=== PATIENT | female | born 1985 | race African-American/Black ===

== ENCOUNTER 2017-03-14 05:12 | Inpatient (IN) | payer MEDICAID ==
[2017-03-14] VITALS (7 sets, daily range): BP systolic 98–119; BP diastolic 49–68; PULSE 68–83; RESP 16–18; TEMP 97.6–98.3; O2SAT 97–99
[~2017-03-14] VITALS: Ht 162.6 cm; Wt 104.0 kg
[2017-03-14] MEDS ORDERED: LR 1,000 ML IV PRN (05:25)
[2017-03-14] MEDS ORDERED: FAMOTIDINE 20mg IVPB 50 ML IV ONE (05:30)
[2017-03-14] MEDS ORDERED: CEFAZOLIN 2 GM in D5W 50ml 50 ML IV ONE (05:30)
[2017-03-14] MEDS ORDERED: LIDOCAINE 1% (10mg/ml) 2ml SDV ID PRN (05:30)
[2017-03-14] MEDS ORDERED: CITRIC ACID/SODIUM CITRATE 30 ML PO ONE (05:30)
[2017-03-14 05:56] LABS: BASOPHILS % (AUTO) 0.2 % (0-2); EOSINOPHILS # (AUTO) 0.1 T/MM3 (0-0.5); EOSINOPHILS % (AUTO) 0.9 % (0-4); HCT - HEMATOCRIT 29.6 % (36-46); HGB - HEMOGLOBIN 9.5 GM/DL (12-16); IMMATURE GRANULOCYTE # (AUTO) 0.01 T/MM3 (0.00-0.03); IMMATURE GRANULOCYTE % (AUTO) 0.2 % (0.0-0.5); LYMPHOCYTES # (AUTO) 1.7 T/MM3 (1-4.8); LYMPHOCYTES % (AUTO) 32.8 % (23-45); MEAN CORPUSCULAR HGB 26.4 UUG (26-34); MEAN CORPUSCULAR HGB CONC(MCHC 32.1 GM/DL (31-37); MEAN CORPUSCULAR VOLUME 82.2 UM3 (80-100); MONOCYTES # (AUTO) 0.2 T/MM3 (0-0.8); MONOCYTES % (AUTO) 3.8 % (0-9.0); NEUTROPHILS #(AUTO)-ABSOLUTE 3.3 T/MM3 (1.8-7.7); NEUTROPHILS % (AUTO) 62.1 % (33-66); WBC - WHITE BLOOD COUNT 5.3 T/MM3 (4.5-11.0)
--- NOTE | 2017-03-14 06:50 | ANESPREOP ---
Anesthesia Record Date and Time DATE: 03/14/17 TIME: 06:48 Pre-Op Diagnosis previous csection Proposed Surgical Procedure REPEAT NPO since: mn Allergies: Coded Allergies: No Known Allergies (Unverified , 11/15/16) Ht/Wt/BMI Height: 5 ' 4.00 " Weight: 104.000 kg BMI: kg/m2 Vital Signs Date Time Temp Pulse Resp B/P Pulse Ox O2 Delivery O2 Flow Rate FiO2 03/14/17 06:22 98.3 78 16 119/66 98 Room Air Medications Inpatient Medications Current Medications Medications (Trade) Dose Ordered Sig/Fredis Start Time Stop Time Status Last Admin Dose Admin Lactated Ringer's (Lactated Ringers) 1,000 ml @ 150 mls/hr [id number] PRN 03/14/17 05:25 03/14/17 06:38 150 MLS/HR Lidocaine HCl (Xylocaine 1%) 0.2 mg PRN PRN 03/14/17 05:30 Currently on Beta Ladonna: No Medical/Surgical History Anesthesia PMH: Denies: Anesthesia Reactions, Malignant Hyperthermia Smoking Status: Never smoker Past Surgical History Orthopedic Surgeries: Abdominal Surgeries: Genitourinary Surgeries: Cardiac Surgeries: Endocrine Surgeries: Reproductive Surgeries: Neurological Surgeries: Ear Surgeries: Nose Surgeries: Throat Surgeries: Other Surgeries: Anesthesia Adverse Reactions: FOUND none Family Hx of Anesthesia Advers: none Hx of Motion Sickness: No Pertinent Findings Laboratory Tests 03/14/17 05:50 EKG Rhythm: Sinus Rhythm Physical Exam Respiratory: Lungs clear Cardiovascular: FOUND Regular rate, rhythm, FOUND No murmur Airway Assessment Mallampati Score: II TMD: 3 Fingerbreadths Neck Extension: Good Overall Assessment: No Airway Concerns ASA: 2 Plan Regional: Spinal Discussion Discussed risks/options/alternatives of anesthesia and questions answered. Patient consents. Nursing pain assessment noted. Attestation Statement Prior to the delivery of any anesthetic medication, I examined the patient, developed the plan, obtained the patient's consent and discussed the risk and benefits of the procedure with the patient/guardian. CAROLINA BARRERA CRNA March 14, 2017 06:50
[2017-03-14] MEDS ORDERED: OXYTOCIN 10 UNIT/ML INJECTION ONE (07:01)
[2017-03-14] MEDS ORDERED: MORPHINE SULFATE PF 5mg/10ml VL (DURAMORPH) ONE (07:01)
[2017-03-14] MEDS ORDERED: FENTANYL 100mcg/2ml INJECTION ONE (07:02)
[2017-03-14] MEDS ORDERED: EPHEDRINE SULFATE 50mg/ml INJECTION ONE (07:41)
[2017-03-14] MEDS ORDERED: SALINE FLUSH 10ml SYRINGE ONE (07:41)
[2017-03-14] MEDS ORDERED: ONDANSETRON 4mg/2ml INJECTION IV PRN (08:15)
[2017-03-14] MEDS ORDERED: METOCLOPRAMIDE 10mg/2ml INJECTION IV PRN (08:15)
[2017-03-14] MEDS ORDERED: DiphenhydrAMINE 50 MG/ML INJECTION IV PRN (08:15)
[2017-03-14] MEDS ORDERED: NALBUPHINE 10mg/ml INJECTION IV PRN (08:15)
[2017-03-14] MEDS ORDERED: NALOXONE 0.4mg/ml INJECTION IV PRN (08:15)
[2017-03-14] MEDS ORDERED: D5LR 1,000 ML IV SCH (09:13)
[2017-03-14] MEDS ORDERED: OXYTOCIN 30 UNIT in D5LR 500 ML IV SCH (09:13)
[2017-03-14] MEDS ORDERED: HYDROCORTISONE 2.5% CREAM 30 GM RECTALLY PRN (09:15)
[2017-03-14] MEDS ORDERED: ACETAMINOPHEN 500 MG TABLET PO PRN (09:15)
[2017-03-14] MEDS ORDERED: MILK OF MAGNESIA 30 ML SUSP PO PRN (09:15)
[2017-03-14] MEDS ORDERED: CALCIUM CARBONATE 500mg Chewable TAB PO PRN (09:15)
[2017-03-14] MEDS ORDERED: DiphenhydrAMINE 25 MG CAPSULE PO PRN (09:15)
[2017-03-14] MEDS: SIMETHICONE 80 MG CHEWABLE TABLET PO CHEW SCH ×4 (09:30→23:30)
[2017-03-14] MEDS: IBUPROFEN 800 MG TABLET PO PRN ×2 (10:48→17:37)
[2017-03-14] MEDS: HYDROCODONE/APAP 5 mg/325 mg TABLET PO PRN ×2 (10:49→17:37)
--- NOTE | 2017-03-14 12:43 | ANESPO ---
Post-Op Note Date 03/14/17 Time: 12:40 Status Pt Participated in Evaluation: Pt participated in person Vital Signs Date Time Temp Pulse Resp B/P Pulse Ox O2 Delivery O2 Flow Rate FiO2 03/14/17 06:22 98.3 78 16 119/66 98 Room Air Respiratory Function: Airway patent Cardiovascular Function: Regular pulse Mental Status: Alert/oriented Pain Level Intensity: 0 Hydration: IV infusing Complications during Recovery None apparent Follow-Up Instructions Instructions Per Surgeon CAROLINA BARRERA CRNA March 14, 2017 12:43
--- NOTE | 2017-03-14 17:15 | NUR ---
ASSESSMENT: Pt wakes upon RN entrance to room. IV saline locked in pt's left hand, no complications. VSS. Fundus firm at umbilicus, light lochia noted. Tegraderm dressing intact with serosanguineous drainage saturating the 4x4. Urinary branch to dependent drain, adequate urine out put. RN and Leigh Haney Tech assist pt to stand at bedside. RN provides pericare and changed peripad. Leigh changes loni pad. Pt winces and breathing heavily with movement. Pt repositioned in bed, knee high SCD's pumping bilaterally. Water pitcher refilled and pt states she's hungry. Dr Oneal on unit and updated on dressing. Pain medication provided. Dr Oneal assessed and removed wet dressing. Dr Oneal applies sterile steri strips, Telfa, ABD pad and transpore tape to pt's incision. Abdm binder placed for support. Dr Oneal translates dinner menu and RN orders pt's choices. Dr Oneal translates consent for baby's circumcision. Pt signs consent form. Baby returned to room and pt places baby to breast. No assistance needed with getting baby latched for . PT denies other needs at this time, call light within reach.
--- NOTE | 2017-03-14 20:10 | OPNOTEPD ---
Operative Note Date of Operation Date of Operation: 03/14/17 General : 3 Para: 2 Gestation (Weeks): 39 Gestation (Days): 1 Preoperative Diagnosis Previous section Postoperative Diagnosis Same as preoperative dx Procedure Repeat, Low-transverse Surgeon Debby Warren MD Brim Stretching Machine Operator Niranjan Abrams MD Anesthesia Anesthesia Provider: Vamshi Hayward CRNA Complications No Complications: No complications Estimated Blood Loss 800 cc Findings viable male, clear fluids, normal uterus, normal adenexa APGARS [place] Weight 3920 grams [place] Name Jewels Figueroa Junior Bernardo Indications Previous x2 at term gestation Description of Procedure The patient was taken to the operating room where adequate anesthesia as described above was obtained. A vertical skin incision was made with the scalpel with care to remove the patient's prior vertical scar tissue from her prior abdominal surgeries. This incision was then carried down to the fascia sharply. The fascia was incised and the rectus muscles in the midline. Due to patient's prior adhesions and scarring, it was deemed safer to extend the skin incision superiorly and akin-umbilically to gain an extra inch. The peritoneum was entered and incised superiorly and inferiorly taking care to avoid the bowel and bladder. A bladder blade was inserted and a bladder flap was created. A low transverse uterine incision was made as described above and the infant was delivered in the cephalic position. Mouth and nares were bulb suctioned, the cord was clamped and cut, and the infant was handed to the nursing staff. The placenta was delivered and the uterine cavity examined. The uterine incision was closed in a running-lock fashion with 0-monocryl suture. Hemostasis was confirmed. The bladder flap was then reapproximated with 2-0 chromic. The peritoneum layer was closed with 2-0 vicryl suture. The fascia was closed with two separate 0-vicryl sutures meeting in the middle. The subcutaneous tissue was reapproximated with two layers of 2-0 vicryl. The skin was closed with 4-0 vicryl suture and a sterile pressure dressing was applied. The patient taken to the recovery room in satisfactory condition. Needle, sponge, and instrument counts were correct. DEBBY WARREN MD March 14, 2017 09:13
[2017-03-15] VITALS (9 sets, daily range): BP systolic 106–116; BP diastolic 57–65; PULSE 77–82; RESP 16; TEMP 98–98.3; O2SAT 99–100
[2017-03-15] MEDS: IBUPROFEN 800 MG TABLET PO PRN ×3 (01:26→18:07)
[2017-03-15] MEDS: HYDROCODONE/APAP 5 mg/325 mg TABLET PO PRN ×2 (01:27→07:52)
--- NOTE | 2017-03-15 02:49 | NUR ---
SHIFT SUMMARY: VSS, pt's pain controlled with PO Motrin, Elmont 5 and Mylicon. Fundus firm at umbilicus, scant to light lochia noted. Vertical incision dressing dry and intact. Dr Oneal changed incision dressing, see previous note. Abdm binder in place for support. IV saline locked in pt's left hand. Urinary branch cath to dependent drain, adequate urine output collected. Pt been very tired this shift. Pt did stand at bedside for pericare. RN has changed peripad x2. Pt tolerating general diet and consuming water. Bilateral knee high SCD pumping. Pt well, no assistance needed. Bonding with baby appropriately. Pt currently sleeping, baby in nursery.
--- NOTE | 2017-03-15 02:49 | NUR ---
Chart Check 24 hour chart check completed
[2017-03-15 05:19] LABS: HCT - HEMATOCRIT 29.6 % (36-46); HGB - HEMOGLOBIN 9.4 GM/DL (12-16); MEAN CORPUSCULAR HGB 26.2 UUG (26-34); MEAN CORPUSCULAR HGB CONC(MCHC 31.8 GM/DL (31-37); MEAN CORPUSCULAR VOLUME 82.5 UM3 (80-100); MEAN PLATELET VOLUME 10.7 UM3 (9.4-12.4); RED BLOOD COUNT 3.59 M/MM3 (4.00-5.20); WBC - WHITE BLOOD COUNT 6.8 T/MM3 (4.5-11.0)
[2017-03-15] MEDS: SIMETHICONE 80 MG CHEWABLE TABLET PO CHEW SCH ×4 (09:39→22:26)
[2017-03-15] MEDS: DOCUSATE CALCIUM 240 MG CAPSULE PO SCH (09:39)
--- NOTE | 2017-03-15 10:22 | PNPDOC ---
Progress Note PPD1 Rubella: Immune GBS: Positive Blood Type:O pos Subjective 03/15/17 Lochia: Minimal Pain: Controlled Nausea and Vomiting: No Nausea/Vomiting Objective Vital Signs Date Time Temp Pulse Resp B/P Pulse Ox O2 Delivery O2 Flow Rate FiO2 03/15/17 09:14 98.1 81 16 116/65 99 03/15/17 05:30 Room Air Urine Output: Good General: Alert and Oriented Abdomen: Fundus Firm, Non-tender, Non-distended Incision: Clean/Dry/Intact, No Erythema Extremities: Non-tender Assessment SP, Repeat C/S, Anemia Plan Routine Care, Continue PNV CLINT WARREN MD March 15, 2017 10:22
--- NOTE | 2017-03-15 11:15 | NUR ---
CM THIS WORKER MET WITH PT ON THIS DATE. PT WAS LAYING IN BED HOLDING BABY. FOB AT BEDSIDE. THIS WORKER UTILIZED THE [employer] MANAGER [employer] PROGRAM TO VISIT WITH PARENTS. THIS WORKER INTRODUCED SELF AND ROLE OF CASE MANAGEMENT. THIS WORKER INQUIRED REGARDING NEEDS FOR BABY. PARENTS REPORTED THAT THEY HAD ALL NECESSARY ITEMS FOR BABY AT HOME. MOTHER REPORTED THAT SHE HAD GOOD SUPPORT FROM THE SPIRITISM PARENTS BOTH DENIED NEEDS. PARENTS BOTH DENIED NEEDS FOR DISCHARGE.
--- NOTE | 2017-03-15 14:30 | NUR ---
SHIFT SUMMARY VSS. PAIN CONTROLLED WITH IBUPROFEN 800MG AND NORCO 10/325MG PER DR. WARREN GIVE MEDS ON A SCHEDULED TIME. FUNDUS FIRM, LOCHIA LIGHT. D/C'D GONZALEZ AND IV LOCK. VERTICAL INCISION OPEN TO AIR, NO S/S OF INFECTION. STERI-STRIPS IN PLACE. ABDOMINAL BINDER. BREAST FEEDING WELL X2. AMBULATED UNIT X1. BABY ROOMED IN WITH PT.
--- NOTE | 2017-03-16 01:37 | NUR ---
SHIFT SUMMARY VSS. Assessment WNL. Voiding independently without difficulty, and with adequate output. Tolerating a regular diet. Keeps in room throughout shift. Bonding appropriately. well. Showered this shift. Ambulating ad feng independently. Incision with steri strips, open to air and asymptomatic. Will continue to monitor and follow plan of care.
[2017-03-16] MEDS: IBUPROFEN 800 MG TABLET PO PRN ×2 (02:14→10:16)
[2017-03-16 02:18] VITALS: BP 134/64; PULSE 93; RESP 18; TEMP 98.4; O2SAT 98
[2017-03-16 04:15] VITALS: BP 122/76; PULSE 81; RESP 18; TEMP 98.4; O2SAT 99
--- NOTE | 2017-03-16 08:05 | PNPDOC ---
Progress Note PPD2 Rubella: Immune GBS: Positive Blood Type:O pos Subjective 03/16/17 Lochia: Moderate Pain: Controlled (Reports that her incisional pain is controlled. Has a HERNÁNDEZ this a.m. and doesn't get much relief.) Voiding: Voiding Nausea and Vomiting: No Nausea/Vomiting Objective VSS AF Vital Signs Date Time Temp Pulse Resp B/P Pulse Ox O2 Delivery O2 Flow Rate FiO2 03/16/17 04:15 98.4 81 18 122/76 99 Room Air General: Alert and Oriented Respiratory: Non-labored Abdomen: Fundus Firm Incision: Clean/Dry/Intact Extremities: Non-tender Edema: None Assessment Repeat C/S Plan Routine Care (Not ready to go home.) MARIA ELENA PADILLA PROGRAM AND RESEARCH COORDINATOR March 16, 2017 08:05
[2017-03-16 08:13] VITALS: BP 121/67; PULSE 67; RESP 18; TEMP 97.7; O2SAT 99
[2017-03-16] MEDS: DOCUSATE CALCIUM 240 MG CAPSULE PO SCH (09:07)
[2017-03-16] MEDS: SIMETHICONE 80 MG CHEWABLE TABLET PO CHEW SCH ×2 (09:07→13:16)
[2017-03-16] MEDS ORDERED: BUTALBITAL/APAP/CAFFEINE TABLET PO PRN (10:30)
--- NOTE | 2017-03-16 11:07 | NUR ---
NEW MED ORDERS NORCO 7.5/325MG 1 TABLET Q6 HRS PRN PER [address]. WARREN. FIORICET 1 TABLET Q4HOUR PRN FOR H/A PER Kristin QUINTEROS CRNA.
--- NOTE | 2017-03-16 11:45 | PNPDOC ---
Prog Note 03/16/17 Pt was seen by Anesthesia - does not seem like a spinal headache. She had a Fioricet and feels better, feels ready for discharge this PM. Stable for discharge at 1700 per patient's wishes. F/u in clinic in 1 week for incision check. Questions solicited and answered. CLINT WARREN MD March 16, 2017 11:45
[2017-03-16] MEDS ORDERED: HYDR-4246 PO (11:48)
[2017-03-16] MEDS ORDERED: IBUP-1547 PO (11:48)
[2017-03-16] MEDS ORDERED: DOCU-168 PO (11:48)
[2017-03-16] MEDS ORDERED: FERR-70 PO (11:48)
[2017-03-16 16:27] VITALS: BP 136/68; PULSE 76; RESP 20; TEMP 98.5; O2SAT 100
== END 2017-03-16 18:45 | disposition home or self-care (01) | DRG 766 ==
LOC: MC 05:12
PROVIDERS: ADMIT Obstetrics & Gynecology; ATTEND Obstetrics & Gynecology
PROC: 10D00Z1 Extraction of Products of Conception, Low, Open Approach (ICD-10-PCS; principal; 2017-03-14 07:48)
DX: O34.211 Maternal care for low transverse scar from previous cesarean delivery (principal); N85.8 Other specified noninflammatory disorders of uterus; O36.63X0 Maternal care for excessive fetal growth, third trimester, not applicable or unspecified; O99.284 Endocrine, nutritional and metabolic diseases complicating childbirth; E03.9 Hypothyroidism, unspecified; O99.824 Streptococcus B carrier state complicating childbirth; O99.02 Anemia complicating childbirth; D50.8 Other iron deficiency anemias; Z3A.39 39 weeks gestation of pregnancy; Z37.0 Single live birth
CPT/HCPCS: 36415; 85025; 85027; 86850; 86870; 86900; 86901